=== PATIENT | female | born 1955 | race Caucasian/White ===

== ENCOUNTER 2022-12-17 12:49 | Outpatient (CLI) | payer OTHER ==
--- NOTE | 2022-12-17 17:36 | DEXA Report ---
PROCEDURE: Dexa Spine and/or Hip INDICATIONS: POST MENOPAUSAL TECHNIQUE: Dual energy x-ray absorptiometry (DXA) was performed on a [employer] System. Regions measur ed are the AP Spine, femoral neck, and if needed forearm. COMPARISON: None. FINDINGS: Lumbar Spine: Bone Mineral Density 0.922 g/cm/cm,T score -2.2, osteopenia Left Femoral Neck: Bone Mineral Density 0.759 g/cm/cm, T score -2.0, osteopenia Left Hip: Bone Mineral Density 0.834 g/cm/cm,T score -1.4, osteopenia (T score greater or equal to -1.0: NORMAL) (T score from -1.1 to -2.4: OSTEOPENIA) (T score less than or equal to -2.5 to: OSTEOPOROSIS) Impression: Osteopenia Patients with diagnosis of osteoporosis or osteopenia should have regular bone mineral density assess ment. For those eligible for Medicare, routine testing is allowed once every 2 years. Testing frequ ency can be increased for patients who have rapidly progressing disease or for those who are receivin g medical therapy to restore bone mass. Reviewed by: Karel Contreras MD on 12/17/2022 4:35 PM [facility] Approved by: Karel Contreras MD on 12/17/2022 4:35 PM AKST Station ID: [id number]
== END 2022-12-17 12:50 | disposition home or self-care (01) ==
LOC: DI 12:49
PROVIDERS: ATTEND Physician Assistant
DX: M85.89 Other specified disorders of bone density and structure, multiple sites (principal)